=== PATIENT | male | born 1980 | race Caucasian/White ===

== ENCOUNTER 2016-12-08 17:15 | Emergency (ER) | payer SELFPAY ==
[~2016-12-08] VITALS: Ht 175.3 cm; Wt 104.8 kg
[2016-12-08 20:17] VITALS: BP 137/88
== END 2016-12-08 20:17 | disposition home or self-care (01) ==
LOC: ED 17:15
DX: J20.9 Acute bronchitis, unspecified (principal)
CPT/HCPCS: Q0092

== ENCOUNTER 2017-10-11 22:22 | Emergency (ER) | payer OTHER ==
[~2017-10-11] VITALS: Ht 175.3 cm; Wt 112.0 kg
[2017-10-12 00:01] VITALS: BP 150/98
== END 2017-10-12 00:01 | disposition home or self-care (01) ==
LOC: ED 22:22
DX: H66.92 Otitis media, unspecified, left ear (principal)